=== PATIENT | female | born 1970 | race African-American/Black ===

== ENCOUNTER 2016-10-24 10:04 | Emergency (ER) | payer SELFPAY ==
[~2016-10-24] VITALS: Ht 167.6 cm; Wt 127.0 kg
[2016-10-24 10:05] VITALS: BP 147/93; PULSE 92; RESP 18; TEMP 98.3; O2SAT 97
--- NOTE | 2016-10-24 10:44 | PD ---
HPI Chief Complaint: Complaint Time Seen by Provider: 10:26 Travel History International Travel<30 days: No Contact w/Intl Traveler<30days: No Traveled to known affect area: No History of Present Illness HPI The patient is a 46-year-old [place] female who presents emergency department for genitourinary symptoms. The patient has a 2 day history of dysuria, frequency, urgency, with suprapubic discomfort and mild left mid back pain. The patient does note a fever as high as 101 last night, she did take Tylenol this morning, prior to arrival. The patient does have a history of UTI , remotely several years ago with similar symptoms. The patient's last menstrual cycle was at the beginning of September, she is not currently on control, unsure if she is . She denies any vaginal discharge or bleeding. Symptoms are mild to moderate, there are no current alleviating or exacerbating factors. PFSH Past Medical History Medical History: Denies Significant Hx Tetanus Vaccination: < 5 Years ?: Not LMP: 09/14/16 Past Surgical History Section: Yes Social History Alcohol Use: No Tobacco Use: No Substance Use: No Allergies-Medications (Allergen,Severity, Reaction): Coded Allergies: No Known Allergies (Unverified , 10/24/16) Reported Meds & Prescriptions Reported Meds & Active Scripts Active No Active Prescriptions or Reported Medications Review of Systems Except as stated in HPI: all other systems reviewed are Neg General / Constitutional: Positive: Fever Gastrointestinal: No: Nausea, Vomiting, Diarrhea, Abdominal Pain Genitourinary: Positive: Urgency, Frequency, Dysuria, Pelvic Pain (suprapubic discomfort), No: Hematuria Musculoskeletal: Positive: Pain (left mid back pain) Physical Exam Narrative GENERAL: Awake, alert, pleasant 46-year-old female who appears her stated age and is in no acute respiratory distress. SKIN: Focused skin assessment warm/dry. HEAD: Atraumatic. Normocephalic. EYES: Pupils equal and round. No scleral icterus. No injection or drainage. ENT: No nasal bleeding or discharge. Mucous membranes pink and moist. NECK: Trachea midline. No JVD. GASTROINTESTINAL: Abdomen soft, mild suprapubic tenderness. No rebound tenderness, guarding, rigidity. Back: Positive left CVA tenderness. MUSCULOSKELETAL: No obvious deformities. No clubbing. No cyanosis. No edema. NEUROLOGICAL: Awake and alert. No obvious cranial nerve deficits. Motor grossly within normal limits. Normal speech. PSYCHIATRIC: Appropriate mood and affect; insight and judgment normal. Data Data Last Documented VS Vital Signs Date Time Temp Pulse Resp B/P Pulse Ox O2 Delivery O2 Flow Rate FiO2 10/24/16 10:05 98.3 92 18 147/93 97 Room Air Orders Urinalysis - C+S If Indicated (10/24/16 10:38) Ed Urine Pregnancytest Poc (10/24/16 10:38) Urine Culture (10/24/16 10:24) Ciprofloxacin (Cipro) (10/24/16 12:00) Phenazopyridine (Pyridium) (10/24/16 12:00) Labs Laboratory Tests Test 10/24/16 10:24 Urine Color YELLOW Urine Turbidity CLOUDY Urine pH 6.0 Urine Specific [place] 1.018 Urine Protein 30 mg/dL Urine Glucose (UA) NEG mg/dL Urine Ketones NEG mg/dL Urine Occult Blood SMALL Urine Nitrite NEG Urine Bilirubin NEG Urine Urobilinogen LESS THAN 2.0 MG/DL Urine Leukocyte Esterase LARGE Urine RBC 10 /hpf Urine WBC /hpf Urine WBC Clumps MOD Urine Squamous Epithelial 4 /hpf Cells Urine Bacteria MANY /hpf Urine Mucus FEW /lpf Microscopic Urinalysis Comment CULTURE INDICATED MDM Medical Decision Making Medical Screen Exam Complete: Yes Emergency Medical Condition: Yes Medical Record Reviewed: Yes Interpretation(s) Laboratory Tests Test 10/24/16 10:24 Urine Color YELLOW Urine Turbidity CLOUDY Urine pH 6.0 Urine Specific [place] 1.018 Urine Protein 30 mg/dL Urine Glucose (UA) NEG mg/dL Urine Ketones NEG mg/dL Urine Occult Blood SMALL Urine Nitrite NEG Urine Bilirubin NEG Urine Urobilinogen LESS THAN 2.0 MG/DL Urine Leukocyte Esterase LARGE Urine RBC 10 /hpf Urine WBC /hpf Urine WBC Clumps MOD Urine Squamous Epithelial 4 /hpf Cells Urine Bacteria MANY /hpf Urine Mucus FEW /lpf Microscopic Urinalysis Comment CULTURE INDICATED Differential Diagnosis Differential diagnosis includes pyelonephritis, UTI, ovarian torsion, nephrolithiasis, hydronephrosis, cervicitis, PID, . Narrative Course UA was sent to lab and bedside UA test was obtained. test was negative. The patient's UA reveals innumerable WBCs consistent with UTI, left flank pain with CVA tenderness consistent with pyelonephritis. The patient was administered Cipro and pirating them. She will be discharged home on pirating them and Cipro, is advised to follow-up with her primary physician. Return if symptoms worsen or progress. Diagnosis Primary Impression: Pyelonephritis Patient Instructions: General Instructions Additional Instructions: Medications as directed. Follow-up with your primary physician. Return if symptoms worsen or progress. Med/Other Pt SpecificInfo: Prescription(s) given Scripts Phenazopyridine (Pyridium)100 Mg [id number] Mg PO Q8H PRN (DYSURIA) 2 Days Ref 0 Prov:Maunel Escalera MD 10/24/16 Ciprofloxacin (Cipro)500 Mg [id number] Mg PO BID 7 Days Ref 0 Prov:Manuel Escalera MD 10/24/16 Disposition: 01 DISCHARGE HOME Condition: Stable Manuel Escalera MD Oct 24, 2016 10:44
[2016-10-24 11:23] LABS: BACTERIA, URINE MANY /hpf; BLOOD, URINE SMALL (NEG); COMMENT (UR) CULTURE INDICATED; CULTURE IF INDICATED CULTURE INDICATED; GLUCOSE,URINE NEG (NEG); KETONE, URINE NEG (NEG); MUCUS URINE FEW /lpf (OCC); NITRITE,URINE NEG (NEG); SQUAMOUS EPITHELIAL CELL URINE 4 /hpf (0-5); URINE COLOR YELLOW (YELLW/STRAW)
[2016-10-24] MEDS ORDERED: CIPROFLOXACIN 500 MG TAB PO ONE (12:00)
[2016-10-24] MEDS ORDERED: PHENAZOPYRIDINE HCL 200 MG TAB PO ONE (12:00)
[2016-10-24] MEDS ORDERED: CIPR-9 PO (12:01)
[2016-10-24] MEDS ORDERED: PHEN0.4T PO (12:01)
[2016-10-24 12:10] VITALS: BP 140/78
== END 2016-10-24 12:11 | disposition home or self-care (01) ==
LOC: NEPD 10:04
DX: N12 Tubulo-interstitial nephritis, not specified as acute or chronic (principal); B96.20 Unspecified Escherichia coli [E. coli] as the cause of diseases classified elsewhere
CPT/HCPCS: 81001; 84703; 87077; 87086; 87186; 99284